=== PATIENT | female | born 1975 | race Caucasian/White ===

== ENCOUNTER 2018-02-06 00:52 | Emergency (ER) | payer SELFPAY ==
[~2018-02-06] VITALS: Ht 167.6 cm; Wt 72.6 kg
[2018-02-06 01:15] VITALS: BP 115/68
[2018-02-06 02:01] LABS: BASOPHILS % (AUTO) 1.6 % (0.0-2.0); HEMOGLOBIN 14.5 G/DL (12.0-16.0); LYMPHOCYTES % (AUTO) 39.3 % (20.0-45.0); MEAN CORPUSCULAR VOLUME 96 FL (80-99); NEUTROPHILS % (AUTO) 47.2 % (45.0-75.0); PLATELET COUNT 280 K/UL (150-450); RED BLOOD COUNT 3.96 M/UL (4.20-5.40); RED CELL DISTRIBUTION WIDTH 11.2 % (11.6-14.8); WHITE BLOOD COUNT 7.1 K/UL (4.8-10.8)
[2018-02-06 02:09] LABS: ANION GAP 11 mmol/L (5-15); BLOOD UREA NITROGEN 12 mg/dL (7-18); CALCIUM 8.5 MG/DL (8.5-10.1); CARBON DIOXIDE 25 MMOL/L (21-32); CHLORIDE 105 MMOL/L (98-107); CREATININE 0.6 MG/DL (0.55-1.30); POTASSIUM 3.3 MMOL/L (3.5-5.1); SODIUM 141 MMOL/L (136-145)
[2018-02-06 03:15] VITALS: BP 107/65
[2018-02-06 05:15] VITALS: BP 105/61
--- NOTE | 2018-02-06 06:10 | Emergency Room Report ---
History of Present Illness General Chief Complaint: Alcohol Intoxication Source: Patient, EMS Present Illness HPI Patient was brought in by paramedics from [facility] Employees at the hotel reportedly called as the patient was found altered And possibly inebriated Upon initial arrival the patient was minimally responsive to physical stimuli Throughout the course of her stay she has become more oriented and awake Allergies: Coded Allergies: UNABLE TO ASSESS (Unverified , 02/06/18) Patient not responding to questions. She only slightly opened her eyes when called by her name. Patient History Past Medical History: see triage record Past Surgical History: none Pertinent Family History: none Last Menstrual Period: unknown Now: No Reviewed Nursing Documentation: PMH: Agreed; PSxH: Agreed Nursing Documentation-PMH Past Medical History Deferred: Pt Cognitively Impaired Review of Systems All Other Systems: negative except mentioned in HPI Physical Exam Vital Signs Date Time Temp Pulse Resp B/P (MAP) Pulse Ox O2 Delivery O2 Flow Rate FiO2 02/06/18 00:53 97.7 70 18 107/64 98 Room Air 97.7 Sp02 EP Interpretation: reviewed, normal General Appearance: no apparent distress Head: normocephalic, atraumatic Eyes: bilateral eye PERRL, bilateral eye EOMI ENT: hearing grossly normal, normal pharynx Neck: full range of motion, supple Respiratory: lungs clear Cardiovascular #1: regular rate, rhythm, no edema Gastrointestinal: non tender, soft, no mass Musculoskeletal: normal inspection Neurologic: alert, oriented x3, responsive - Initially the patient was fairly inebriated, sluggish to respond, further evaluation shows improved symptoms and awake and alert Skin: normal color, no rash Lymphatic: no adenopathy Medical Decision Making Diagnostic Impression: Primary Impression: Acute alcoholic intoxication Additional Impression: Drug abuse ER Course Multiple differentials considered upon arrival including but not limited to neurological, electrolyte drug-induced pathology patient shows significantly elevated on-call level Patient was provided with further hydration Also showing positive drug abuse Patient had extended stay in the emergency room Continues to sober patient has multiple re-evaluations, nursing staff at this time has further repeat evaluations and patient pending further sobering to be dispositioned with family/friend other appropriate disposition , Labs Test 02/06/18 01:30 White Blood Count 7.1 K/UL (4.8-10.8) Red Blood Count 3.96 M/UL (4.20-5.40) Hemoglobin 14.5 G/DL (12.0-16.0) Hematocrit 38.0 % (37.0-47.0) Mean Corpuscular Volume 96 FL (80-99) Mean Corpuscular Hemoglobin 36.7 PG (27.0-31.0) Mean Corpuscular Hemoglobin Concent 38.3 G/DL (32.0-36.0) Red Cell Distribution Width 11.2 % (11.6-14.8) Platelet Count 280 K/UL (150-450) Mean Platelet Volume 5.9 FL (6.5-10.1) Neutrophils (%) (Auto) 47.2 % (45.0-75.0) Lymphocytes (%) (Auto) 39.3 % (20.0-45.0) Monocytes (%) (Auto) 8.0 % (1.0-10.0) Eosinophils (%) (Auto) 4.0 % (0.0-3.0) Basophils (%) (Auto) 1.6 % (0.0-2.0) Sodium Level 141 MMOL/L (136-145) Potassium Level 3.3 MMOL/L (3.5-5.1) Chloride Level 105 MMOL/L (98-107) Carbon Dioxide Level 25 MMOL/L (21-32) Anion Gap 11 mmol/L (5-15) Blood Urea Nitrogen 12 mg/dL (7-18) Creatinine 0.6 MG/DL (0.55-1.30) Estimat Glomerular Filtration Rate > 60 mL/min (>60) Glucose Level 131 MG/DL (74-106) Calcium Level 8.5 MG/DL (8.5-10.1) Urine Opiates Screen Negative (NEGATIVE) Urine Barbiturates Screen Negative (NEGATIVE) Phencyclidine (PCP) Screen Negative (NEGATIVE) Urine Amphetamines Screen Positive (NEGATIVE) Urine Benzodiazepines Screen Negative (NEGATIVE) Urine Cocaine Screen Negative (NEGATIVE) Urine Marijuana (THC) Screen Positive (NEGATIVE) Serum Alcohol 336 mg/dL Last Vital Signs Date Time Temp Pulse Resp B/P (MAP) Pulse Ox O2 Delivery O2 Flow Rate FiO2 02/06/18 05:15 97.8 81 18 105/61 99 Room Air 97.8 Status: improved Disposition: HOME, SELF-CARE Condition: Improved Referrals: NOT CHOSEN [facility]/MD,REFERRING (PCP) Additional Instructions: Patient is provided with the discharge instructions notified to follow up with primary doctor in the next 2-3 days otherwise return to the er with any worsening symptoms. Please note that this report is being documented using [employer] technology. This can lead to erroneous entry secondary to incorrect interpretation by the dictating instrument. Kaela Bloom DO Feb 06, 2018 06:10
[2018-02-06 06:50] VITALS: BP 105/61
== END 2018-02-06 06:50 | disposition home or self-care (01) ==
LOC: EDBD 00:52 → EMR 01:18
DX: F10.129 Alcohol abuse with intoxication, unspecified (principal); R41.82 Altered mental status, unspecified; F19.10 Other psychoactive substance abuse, uncomplicated
CPT/HCPCS: 36415; 80048; 80307; 85025; 96360; 99283; G0480; 80329; 96374; 96375

== ENCOUNTER 2018-09-24 13:51 | Emergency (ER) | payer MEDICAID, SELFPAY ==
[~2018-09-24] VITALS: Ht 167.6 cm; Wt 57.6 kg
--- NOTE | 2018-09-24 13:55 | NUR ---
ED Nurse Note: PT NOT PRESENT IN THE WAITING ROOM UPON BEING CALLED FOR TRIAGE
[2018-09-24 14:18] VITALS: BP 108/76
--- NOTE | 2018-09-24 14:20 | NUR ---
ED Nurse Note:pt. injured right 4th finger afew days ago, finger doesn't look red or swallen ,x-ray done
[2018-09-24] MEDS ORDERED: Bacitracin Oint UD TOPIC ONE (15:00)
[2018-09-24 15:12] VITALS: BP 108/76
[2018-09-24] MEDS ORDERED: BACITRACIN15 GM TOPIC (15:13)
[2018-09-24] MEDS ORDERED: TYLENOL EXTRA500 MG ORAL (15:13)
[2018-09-24] MEDS ORDERED: CLINDAMYCIN HC300 MG ORAL (15:13)
--- NOTE | 2018-09-24 15:15 | NUR ---
ED Nurse Note:pt. was cleared for d/c by ER MD pt received d/c instructions with prescriptions and left ER with steady gait, finger splint was placed by optical coating technician
--- NOTE | 2018-09-24 15:31 | Emergency Room Report ---
History of Present Illness General Chief Complaint: Upper Extremity Injury Source: Patient Present Illness HPI 42-year-old female presents ED for evaluation. Patient complaining of right index finger pain and swelling. States she slammed it against a table 5 days ago. States there is persistent swelling to the fourth finger. Pain is throbbing, 10 out of 10, nonradiating. Denies any bleeding. States there is nail samoan on her fingers but there could be some discoloration to the nail bed. No other aggravating relieving factors. Denies any other associated symptoms Allergies: Coded Allergies: PENICILLINS (Verified Allergy, Unknown, 09/24/18) Patient History Past Medical History: none Past Surgical History: none Pertinent Family History: none Social History: Denies: smoking, alcohol use, drug use Now: No Immunizations: UTD Reviewed Nursing Documentation: PMH: Agreed; PSxH: Agreed Nursing Documentation-PMH Past Medical History: No Stated History Review of Systems All Other Systems: negative except mentioned in HPI Physical Exam Vital Signs Date Time Temp Pulse Resp B/P (MAP) Pulse Ox O2 Delivery O2 Flow Rate FiO2 09/24/18 14:01 98.2 84 19 108/76 100 Room Air Sp02 EP Interpretation: reviewed, normal General Appearance: no apparent distress, alert, GCS 15, non-toxic Head: normocephalic Eyes: bilateral eye normal inspection, bilateral eye PERRL ENT: hearing grossly normal Neck: normal inspection Respiratory: normal inspection Cardiovascular #1: normal inspection Gastrointestinal: normal inspection Rectal: deferred Genitourinary: no CVA tenderness Musculoskeletal: swelling - subungual hematoma R 4th digit. no discharge. no erythema/induration Neurologic: alert, oriented x3, responsive, motor strength/tone normal, sensory intact, speech normal Psychiatric: normal inspection Skin: normal inspection Lymphatic: normal inspection Procedures Additional Procedure Procedure Narrative subungual hematoma Patient placed on stretcher. Foot is draped/prepped in sterile fashion. I insert the cautery directly into the nail bed until no further ressistance is met and blood is released. I then apply pressure, until all the blood is released, causing relief in pressure to the nailbed. Dressing applied. Patient tolerated procedure without complication Medical Decision Making Diagnostic Impression: Primary Impression: Subungual hematoma ER Course Hospital Course 42-year-old female presents to ED with swelling and discoloration to R index finger Differential-contusion, fracture, dislocation, subungual hematoma Clinical course Patient placed on stretcher. After initial history and physical I ordered xrays of R hand X-ray show no evidence of fracture Using cautery device I drained the subungual hematoma underneath the nail bed without difficulty. Patient notes immediate relief of pain and pressure. Dressing applied, bacitracin applied Discussed findings with patient. Safe for discharge and close outpatient follow -up. We'll provide hand referral. States she has an appointment with hand doctor next week. We'll prescribe localized wound care and antibiotics. Diagnosis - subungual hematoma Stable and discharged to home with prescription for tylenol, bacitracin, clindamycin. wound Care instructions given. Followup with hand. Return to ED if any signs of infection develop Other X-Ray Diagnostic Results Other X-Ray Diagnostic Results : X-Ray ordered: R hand # of Views/Limited Vs Complete: 3 View Indication: Pain EP Interpretation: Yes Interpretation: no dislocation, no soft tissue swelling, no fractures Impression: No acute disease Electronically Signed by: Electronically signed by Sunil Sandoval MD Last Vital Signs Date Time Temp Pulse Resp B/P (MAP) Pulse Ox O2 Delivery O2 Flow Rate FiO2 09/24/18 15:12 98.2 73 19 108/76 100 Room Air Status: improved Disposition: HOME, SELF-CARE Condition: Stable Scripts Bacitracin (Bacitracin) 28.4 Gm Oint...g. 1 APPLIC TOPIC THREE TIMES A DAY, #28.4 GM Prov: Sunil Sandoval MD 09/24/18 Clindamycin Hcl (CLINDAMYCIN HCL) 300 Mg Capsule 300 MG ORAL THREE TIMES A DAY, #21 CAP Prov: Sunil Sandoval MD 09/24/18 Acetaminophen* (TYLENOL EXTRA STRENGTH*) 500 Mg Tablet 500 MG ORAL Q8H PRN for Prn Headache/Temp > 101, #30 TAB 0 Refills Prov: Sunil Sandoval MD 09/24/18 Referrals: Brandt Keene MD NON PHYSICIAN (PCP) Patient Instructions: Subungual Hematoma, [id number] Sunil Sandoval MD Sep 24, 2018 15:31
--- NOTE | 2018-09-24 16:39 | Diagnostic Imaging Report ---
Indication: Right hand pain Technique: 3 views right hand Comparison: none Findings: No acute fractures. No dislocations. The joint spaces are preserved. Impression: Negative
[2019-01-22] MEDS ORDERED: IBUPROFEN600 MG ORAL (01:34)
[2019-01-22] MEDS ORDERED: HYDROCODON-ACE1 EA15 ORAL (01:34)
== END 2018-09-24 15:21 | disposition home or self-care (01) ==
LOC: EMR 15:00
DX: S60.141A Contusion of right ring finger with damage to nail, initial encounter (principal); W22.03XA Walked into furniture, initial encounter; Y92.9 Unspecified place or not applicable; Z88.0 Allergy status to penicillin
CPT/HCPCS: 11740; 73130; 99283; Z7502

== ENCOUNTER 2019-03-19 20:15 | Emergency (ER) | payer OTHER ==
[~2019-03-19] VITALS: Ht 167.6 cm; Wt 59.0 kg
[~2019-03-19 20:15] MED LIST: BACITRACIN15 GM TOPIC; CLINDAMYCIN HC300 MG ORAL; HYDROCODON-ACE1 EA15 ORAL; IBUPROFEN600 MG ORAL; TYLENOL EXTRA500 MG ORAL
[2019-03-19 20:18] VITALS: BP 108/69
--- NOTE | 2019-03-19 20:18 | NUR ---
ED Nurse Note: Patient presents with complaints of back pain and neck pain chronic, needs refill as well.
[2019-03-19] MEDS ORDERED: GABAPENTIN400 MG ORAL (20:53)
[2019-03-19] MEDS ORDERED: VOLTAREN100 G1 TP (20:53)
[2019-03-19] MEDS ORDERED: Ketorolac 60mg Inj IM ONE (21:00)
--- NOTE | 2019-03-19 21:00 | Emergency Room Report ---
History of Present Illness General Chief Complaint: Back Pain-No Injury Source: Patient Present Illness HPI Patient is a 43-year-old female presented after increased neck and back pain. Patient reports having multiple episodes of similar symptoms in the past. She reports having prior neck surgery as well as lumbar disc disease. She states she is currently been referred to pain management and is previously been taking multiple medications for her back pain which has been present for many years. Patient reports having increased muscle spasms to the back of her neck. She denies any recent trauma. She had not have any fever or weight loss. She denies any weakness to her extremities. She states that she is able to do Pilates and has previously tried physical therapy without any improvement. Allergies: Coded Allergies: PENICILLINS (Verified Allergy, Unknown, 01/22/19) Patient History Past Medical History: see triage record Last Menstrual Period: na Now: No : 0 Para: 0 Reviewed Nursing Documentation: PMH: Agreed; PSxH: Agreed Nursing Documentation-PMH Past Medical History: No Stated History Review of Systems All Other Systems: negative except mentioned in HPI Physical Exam Vital Signs Date Time Temp Pulse Resp B/P (MAP) Pulse Ox O2 Delivery O2 Flow Rate FiO2 03/19/19 20:18 98.1 89 16 108/69 96 Room Air Sp02 EP Interpretation: reviewed, normal General Appearance: normal inspection, well appearing, no apparent distress, alert, GCS 15, non-toxic Head: atraumatic ENT: normal ENT inspection, hearing grossly normal, normal voice Neck: normal inspection, full range of motion, supple, no bony tend Respiratory: normal inspection, lungs clear, normal breath sounds, no respiratory distress, no retraction, no wheezing Cardiovascular #1: regular rate, rhythm, no edema Gastrointestinal: normal inspection Genitourinary: no CVA tenderness Musculoskeletal: normal inspection, back normal, normal range of motion Neurologic: normal inspection, alert, oriented x3, responsive, senior engineering associate III-XII nml as tested, normal gait, speech normal Psychiatric: normal inspection, judgement/insight normal, mood/affect normal Medical Decision Making Diagnostic Impression: Primary Impression: Chronic pain ER Course Patient presented for back pain. Differential diagnosis include was not limited to cervical disc disease, muscle spasm, cervical stenosis among others. Patient has a benign exam and does not appear to require any further imaging or laboratory testing at this time. Patient appears to have some chronic back pain. There does not appear to be any evidence of acute injury or concern for tumor or infection at this time. Patient appears to have normal neurologic exam and appears to be ambulatory without any gait abnormalities. She is able to move all extremities well and is able to extend her extremities above her shoulders and has good strength in both hands and feet. Her reflexes are normal. Patient was advised to follow-up with her primary care physician for recheck.Given prescription for nonnarcotic medications as well as Toradol injection. Last Vital Signs Date Time Temp Pulse Resp B/P (MAP) Pulse Ox O2 Delivery O2 Flow Rate FiO2 03/19/19 20:18 98.1 70 16 108/69 (82) 96 Room Air Status: improved Disposition: HOME, SELF-CARE Condition: Stable Scripts Gabapentin* (GABAPENTIN*) 400 Mg Capsule 400 MG ORAL THREE TIMES A DAY, #14 CAP 0 Refills Prov: Miles Elizondo MD 03/19/19 Diclofenac Sodium (VOLTAREN) 100 Gm Gel..gram. 5 GM TP DAILY, #100 GM Prov: Miles Elizondo MD 03/19/19 Patient Instructions: Back Pain, Adult Additional Instructions: Follow up with your primary care physician. Return if fever or bowel or bladder dysfunction. Miles Elizondo MD Mar 19, 2019 21:00
[2019-03-19 21:03] VITALS: BP 108/69
--- NOTE | 2019-03-19 21:03 | NUR ---
ED Nurse Note: Patient cleared for discharge, Patient tolerated injection well. Patient verbalized understanding of discharge instructions, escorted to discharge desk and departed with all belongings.
== END 2019-03-19 21:03 | disposition home or self-care (01) ==
LOC: EMR 20:34
DX: M54.2 Cervicalgia (principal); M54.5 Low back pain; G89.29 Other chronic pain; Z88.0 Allergy status to penicillin
CPT/HCPCS: 96372; 99283

== ENCOUNTER → 2020-10-08 | Emergency (ER) | payer OTHER ==
[~2020-10-08] VITALS: Ht 170.2 cm; Wt 59.0 kg
[~2020-10-08] MED LIST changes: +GABAPENTIN400 MG ORAL; +VOLTAREN100 G1 TP
[2020-10-08 20:42] VITALS: BP 106/69
[2020-10-08 20:49] LABS: BASOPHILS % (AUTO) 1.4 % (0.0-2.0); EOSINOPHILS % (AUTO) 5.1 % (0.0-3.0); HEMATOCRIT 41.5 % (37.0-47.0); LYMPHOCYTES % (AUTO) 30.8 % (20.0-45.0); MEAN CORPUSCULAR VOLUME 99 FL (80-99); MONOCYTES % (AUTO) 6.8 % (1.0-10.0); PLATELET COUNT 325 K/UL (150-450); RED BLOOD COUNT 4.21 M/UL (4.20-5.40); RED CELL DISTRIBUTION WIDTH 11.5 % (11.6-14.8); WHITE BLOOD COUNT 7.6 K/UL (4.8-10.8)
[2020-10-08 20:51] LABS: APPEARANCE,URINE CLEAR; BILIRUBIN, URINE NEGATIVE (NEGATIVE); COLOR,URINE PALE YELLOW; GLUCOSE, URINE (UA) NEGATIVE (NEGATIVE); KETONES,URINE NEGATIVE (NEGATIVE); LEUKOCYTE ESTERASE ,URINE NEGATIVE (NEGATIVE); NITRITE,URINE NEGATIVE (NEGATIVE); PH,URINE 7 (4.5-8.0); PROTEIN,URINE NEGATIVE (NEGATIVE); UROBILINOGEN,URINE NORMAL MG/DL (0.0-1.0)
[2020-10-08 21:01] LABS: INR 0.9 (0.9-1.1)
[2020-10-08 21:02] LABS: ANION GAP 6 mmol/L (5-15); BLOOD UREA NITROGEN 11 mg/dL (7-18); CALCIUM 8.9 MG/DL (8.5-10.1); CARBON DIOXIDE 29 MMOL/L (21-32); CHLORIDE 106 MMOL/L (98-107); CREATININE 0.7 MG/DL (0.55-1.30); POTASSIUM 3.8 MMOL/L (3.5-5.1); SODIUM 141 MMOL/L (136-145)
[2020-10-08 21:07] LABS: ALANINE AMINOTRANSFERASE 17 U/L (12-78); ALBUMIN 4.2 G/DL (3.4-5.0); ALBUMIN/GLOBULIN RATIO 1.3 (1.0-2.7); ALKALINE PHOSPHATASE 66 U/L (46-116); ASPARTATE AMINO TRANSFERASE 15 U/L (15-37); BILIRUBIN,TOTAL 0.3 MG/DL (0.2-1.0)
--- NOTE | 2020-10-08 21:39 | Emergency Room Report ---
History of Present Illness General Chief Complaint: Nausea Source: Patient Present Illness HPI This patient states she is worried about being exposed repetitively to toxic black mold. She states that the mold was found in her home. She states that she has had ongoing migraine headaches, congestion, lightheadedness and overall fatigue. She does see an support technician and her primary care physician. She is very concerned and wants testing for mold in her body. She has no fever or chills. Nausea or vomiting. She has no other complaints. Allergies: Coded Allergies: PENICILLINS (Verified Allergy, Unknown, 01/22/19) COVID-19 Screening Contact w/high risk pt: No Experienced COVID-19 symptoms?: No COVID-19 Testing performed STAFF OCCUPATIONAL THERAPIST: No Patient History Past Medical History: none Social History: Denies: smoking, alcohol use, drug use Reviewed Nursing Documentation: PMH: Agreed; PSxH: Agreed Nursing Documentation-PMH Past Medical History: No History, Except For Review of Systems All Other Systems: negative except mentioned in HPI Physical Exam Vital Signs Date Time Temp Pulse Resp B/P (MAP) Pulse Ox O2 Delivery O2 Flow Rate FiO2 10/08/20 19:11 98.4 94 18 106/69 (81) 95 Room Air Sp02 EP Interpretation: reviewed, normal General Appearance: no apparent distress, alert, GCS 15, non-toxic Head: normocephalic, atraumatic Eyes: bilateral eye normal inspection, bilateral eye PERRL ENT: hearing grossly normal, normal pharynx, no angioedema, normal voice Neck: full range of motion, supple/symm/no masses Respiratory: chest non-tender, lungs clear, normal breath sounds, no respiratory distress, no retraction, no accessory muscle use, speaking full sentences Cardiovascular #1: regular rate, rhythm, no edema Gastrointestinal: non tender, soft, non-distended, no guarding, no rebound Rectal: deferred Musculoskeletal: back normal, normal range of motion, gait/station normal, non- tender Neurologic: alert, motor strength/tone normal, oriented x3, sensory intact, responsive, speech normal Psychiatric: judgement/insight normal, memory normal, mood/affect normal, no suicidal/homicidal ideation Skin: no rash, normal color Medical Decision Making Diagnostic Impression: Primary Impression: Allergic reaction to Mold ER Course The patient is concerned about toxic exposures to mold. There was mold found in her home. Patient has no immunosuppression and is not on any immunosuppressant medications and so it is unlikely that this patient has any significant toxicity to the mold. She could definitively be having allergic reactions and allergies/sinusitis to the mold exposure. However, her evaluation today in the emergency department is benign. Laboratory work-up is benign to include a CBC, CMP and chest x-ray is also unremarkable. Although the patient may have symptoms related to the mold exposure there is no emergency medical condition identified. The patient was instructed to follow-up with her primary care physician and possibly an support technician for any further testing that she desires. I educated the patient that my job is primarily to rule out any emergency medical conditions and I did not identify any. This patient was evaluated in the context of the global COVID-19 pandemic, which necessitated consideration that the patient might be at risk for infection with the [id number] virus that causes COVID-19. Institutional protocols and algorithms that pertain to the evaluation of patients at risk for COVID-19 and the state of rapid change based on information released by multiple regulatory bodies including the CDC and federal and state organizations. These policies and algorithms were followed during the patient's care in the ED. Laboratory Tests Test 10/08/20 20:22 10/08/20 20:28 Urine Color Pale yellow Urine Appearance Clear Urine pH 7 (4.5-8.0) Urine Specific [place] 1.005 (1.005-1.035) Urine Protein Negative (NEGATIVE) Urine Glucose (UA) Negative (NEGATIVE) Urine Ketones Negative (NEGATIVE) Urine Blood Negative (NEGATIVE) Urine Nitrite Negative (NEGATIVE) Urine Bilirubin Negative (NEGATIVE) Urine Urobilinogen Normal MG/DL (0.0-1.0) Urine Leukocyte Esterase Negative (NEGATIVE) White Blood Count 7.6 K/UL (4.8-10.8) Red Blood Count 4.21 M/UL (4.20-5.40) Hemoglobin 14.0 G/DL (12.0-16.0) Hematocrit 41.5 % (37.0-47.0) Mean Corpuscular Volume 99 FL (80-99) Mean Corpuscular Hemoglobin 33.3 PG (27.0-31.0) H Mean Corpuscular Hemoglobin Concent 33.7 G/DL (32.0-36.0) Red Cell Distribution Width 11.5 % (11.6-14.8) L Platelet Count 325 K/UL (150-450) Mean Platelet Volume 6.3 FL (6.5-10.1) L Neutrophils (%) (Auto) 56.0 % (45.0-75.0) Lymphocytes (%) (Auto) 30.8 % (20.0-45.0) Monocytes (%) (Auto) 6.8 % (1.0-10.0) Eosinophils (%) (Auto) 5.1 % (0.0-3.0) H Basophils (%) (Auto) 1.4 % (0.0-2.0) Prothrombin Time 10.1 SEC (9.30-11.50) Prothrombin Time INR 0.9 (0.9-1.1) Activated Partial Thromboplast Time 24 SEC (23-33) Sodium Level 141 MMOL/L (136-145) Potassium Level 3.8 MMOL/L (3.5-5.1) Chloride Level 106 MMOL/L (98-107) Carbon Dioxide Level 29 MMOL/L (21-32) Anion Gap 6 mmol/L (5-15) Blood Urea Nitrogen 11 mg/dL (7-18) Creatinine 0.7 MG/DL (0.55-1.30) Estimated Glomerular Filtration Rate > 60 mL/min (>60) Glucose Level 90 MG/DL (74-106) Calcium Level 8.9 MG/DL (8.5-10.1) Total Bilirubin 0.3 MG/DL (0.2-1.0) Aspartate Amino Transferase (AST) 15 U/L (15-37) Alanine Aminotransferase (ALT) 17 U/L (12-78) Alkaline Phosphatase 66 U/L (46-116) Total Protein 7.5 G/DL (6.4-8.2) Albumin 4.2 G/DL (3.4-5.0) Globulin 3.3 g/dL Albumin/Globulin Ratio 1.3 (1.0-2.7) Chest X-Ray Diagnostic Results Chest X-Ray Diagnostic Results : Chest X-Ray Ordered: Yes # of Views/Limited/Complete: 1 View Indication: Shortness of Breath EP Interpretation: Yes Interpretation: no consolidation, no effusion, no pneumothorax, no acute cardiopulmonary disease Impression: No acute disease Electronically Signed by: Sharita Schaefer DO Last Vital Signs Date Time Temp Pulse Resp B/P (MAP) Pulse Ox O2 Delivery O2 Flow Rate FiO2 10/08/20 20:42 98.4 18 106/69 95 Room Air 10/08/20 19:11 94 Status: improved Disposition: HOME, SELF-CARE Condition: Improved [facility]errals: [facility],REFERRING (PCP) Sharita Schaefer DO Oct 08, 2020 21:39
[2020-10-08 22:12] VITALS: BP 102/70
--- NOTE | 2020-10-08 22:15 | NUR ---
ER DISCHARGE NOTE: Patient is cleared to be discharged per ERMD, pt is aox4, on room air, with stable vital signs. pt was given dc instructions, pt was able to verbalize understanding, pt id band and iv site removed without complications. pt is able to ambulate with steady gait. pt took all belongings.
--- NOTE | 2020-10-09 16:17 | Diagnostic Imaging Report ---
Indication: Cough Technique: One view of the chest Comparison: none Findings: There is blunting of the left posterior phrenic sulcus, could indicate a small amount of infiltrate or pleural fluid. The lungs and pleural spaces are otherwise clear. Impression: Possible left basilar consolidation and/or pleural fluid. No acute process otherwise
== END | disposition home or self-care (01) ==
LOC: EMR 19:56
DX: T78.49XA Other allergy, initial encounter (principal); X58.XXXA Exposure to other specified factors, initial encounter; Z77.120 Contact with and (suspected) exposure to mold (toxic); Z88.0 Allergy status to penicillin
CPT/HCPCS: 36415; 71045; 80053; 81003; 85025; 85610; 85730; Z7502; 99284